=== PATIENT | male | born 1995 | race Two or more races ===

== ENCOUNTER 2018-08-12 18:20 | Emergency (ER) | payer MEDICAID, OTHER ==
[2018-08-12] MEDS ORDERED: FLUORESCEIN SODIUM 1 MG STRIP OP ONE (18:35)
[2018-08-12] MEDS ORDERED: PROPARACAINE 0.5% 15 ML OPHT DROP ONE (18:35)
[2018-08-12] MEDS ORDERED: OFLOXACIN 0.3% SOLN PREPACK OPHT.BTL TAKEHOME ONE (18:40)
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
[2018-08-12 19:05] LABS: PLATELET COUNT 231 10^3/uL (150-400)
[2018-08-12] MEDS ORDERED: IBUPROFEN 800 MG TAB PO ONE (20:26)
[2018-08-12] MEDS ORDERED: LORazepam 1 MG TAB PO ONE (20:34)
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
[2018-08-13] MEDS ORDERED: OFLOXACIN 0.3% SOLN PREPACK OPHT.BTL TAKEHOME ONE (01:42)
[2018-08-13 02:43] VITALS: BP 108/66
--- NOTE | 2018-08-13 06:17 | ASMTTCLDSP ---
TLC Discharge Disposition Disposition: Answers: Transfer Disposition Notes: Notes: In consultation with [facility] ED physician, Jim Hernandezoncurred that pt appears to meet 27-65 criteria requiring psychiatric hospitalization as pt appears to be at risk of harm to self/others due to a mental illness condition. Discharge Concerns/Recommendations: Notes: Pt was accepted at [facility] dual dx program. Was patient given the Answers: Not applicable Inpatient Behavioral Health Prohibited Belongings List while in the ED? Type of Hold: Answers: M1/72-hour Hold Hold initiated by: Answers: ED Physician For Transfers, Accepting [facility] Facility: For Transfers, Accepting Huy Lindo MD Psychiatrist: Date Signed: 08/13/2018 06:16 AM Electronically Signed By:Anjali Wolff
== END 2018-08-13 02:43 ==
LOC: EDUNIT#
DX: F22 Delusional disorders (principal); F15.20 Other stimulant dependence, uncomplicated; S05.01XA Injury of conjunctiva and corneal abrasion without foreign body, right eye, initial encounter; K08.89 Other specified disorders of teeth and supporting structures
CPT/HCPCS: 80305; G0480